=== PATIENT | male | born 1935 | race African-American/Black ===

== ENCOUNTER 2018-02-13 12:24 | Emergency (ER) | payer MEDICARE ==
[~2018-02-13] VITALS: Ht 172.7 cm; Wt 78.0 kg
[2018-02-13 16:50] VITALS: BP 127/74
== END 2018-02-13 16:55 | disposition home or self-care (01) ==
LOC: ER 14:01
DX: M47.892 Other spondylosis, cervical region (principal)
CPT/HCPCS: 72125; 99284

== ENCOUNTER 2018-10-16 17:22 | Inpatient (IN) | payer MEDICARE, OTHER ==
[~2018-10-16] VITALS: Ht 190.5 cm; Wt 83.3 kg
[2018-10-16 21:56] LABS: BASOPHILS % 0.1 % (0.0-2.0); EOSINOPHILS % 2.8 % (0.0-5.0); LYMPHOCYTES % 34.1 % (20.0-50.0); MEAN CORPUSCULAR HEMOGLOBIN 22.4 pg (28.0-32.0); MEAN CORPUSCULAR VOLUME 70.4 fL (80.0-94.0); MONOCYTES % 9.2 % (2.0-8.0); NEUTROPHILS % 53.8 % (40.0-76.0); RED BLOOD CELL COUNT 2.72 mill/uL (4.7-6.1); RED CELL DISTRIBUTION WIDTH 20.2 % (11.6-14.6)
[2018-10-16 22:00] LABS: HEMATOCRIT. 19.2 % (42.0-52.0); HEMOGLOBIN. 6.1 g/dL (14.0-18.0)
[2018-10-16 22:01] LABS: CHLORIDE 110 mEq/L (98-107)
[2018-10-16 22:02] LABS: INR 1.1; PROTHROMBIN TIME 11.1 sec (9.1-11.1)
[2018-10-16 22:11] LABS: MEAN PLATELET VOLUME 10.4 fl (7.4-10.4); PLATELET 164 x1000/uL (130-400)
[2018-10-17 01:00] VITALS: BP 153/86
[2018-10-17] MEDS ORDERED: LORA-250 PO (02:56)
[2018-10-17] MEDS ORDERED: LOSA1TAB40 PO (02:56)
[2018-10-17] MEDS ORDERED: ACETAMINOPHEN 325MG TABLET PO PRN (04:30)
[2018-10-17] MEDS ORDERED: LACTULOSE 20G/30ML UDC PO PRN ×2 (04:30→05:00)
[2018-10-17] MEDS ORDERED: ZOLPIDEM TARTRATE 5MG TABLET PO PRN (04:30)
[2018-10-17] MEDS ORDERED: LORAZEPAM 1MG TABLET PO PRN ×2 (04:30→09:00)
[2018-10-17] MEDS ORDERED: BARIUM SULFATE 450ML ORAL SUSP PO SCH (04:30)
[2018-10-17] MEDS ORDERED: DIATR MEGLU/DIATRIZOATE SOLN 30ML PO SCH (04:30)
[2018-10-17 08:00] VITALS: BP 126/56
[2018-10-17] MEDS ORDERED: LORAZEPAM 2MG/ML CPJ IV NR (08:53)
[2018-10-17] MEDS ORDERED: TRAMADOL 50MG TABLET PO PRN (09:00)
[2018-10-17] MEDS ORDERED: EPOETIN ALFA 10000UNITS/ML VIAL SUBCUT SCH (09:00)
[2018-10-17] MEDS ORDERED: DIATR MEGLU/DIATRIZOATE SOLN 30ML PO NR (09:00)
[2018-10-17] MEDS: AMLODIPINE 5MG TABLET PO SCH (10:06)
[2018-10-17] MEDS: IRON SUCROSE COMPLEX 100 MG/5 ML ML IV SCH (10:06)
[2018-10-17] MEDS: PANTOT AC/MIN OIL/PET HY-PHL OINT (AQUAPHOR) TOP SCH ×2 (10:32→18:34)
[2018-10-17 12:00] VITALS: BP 139/68
[2018-10-17 12:50] LABS: CLARITY URINE CLEAR (CLEAR); COLOR URINE YELLOW (YELLOW); KETONES URINE NEGATIVE (NEGATIVE); LEUKOCYTE ESTERASE URINE NEGATIVE (NEGATIVE); NITRITE URINE NEGATIVE (NEGATIVE); OCCULT BLOOD URINE NEGATIVE (NEGATIVE); PH URINE 6.5 (4.5-8.0); PROTEIN URINE NEGATIVE (NEGATIVE); SPECIFIC GRAVITY URINE 1.013 (1.005-1.030); UROBILINOGEN URINE 0.2 E.U./dL (0.2-1.0)
[2018-10-17 16:00] VITALS: BP 118/52
[2018-10-17 20:58] VITALS: BP 107/66
[2018-10-17 21:24] VITALS: BP 107/66
[2018-10-18] VITALS: BP 121/64
[2018-10-18 04:00] VITALS: BP 140/71
[2018-10-18 08:00] VITALS: BP 122/56
[2018-10-18] MEDS: AMLODIPINE 5MG TABLET PO SCH (08:39)
[2018-10-18] MEDS: IRON SUCROSE COMPLEX 100 MG/5 ML ML IV SCH (08:40)
[2018-10-18] MEDS: PANTOT AC/MIN OIL/PET HY-PHL OINT (AQUAPHOR) TOP SCH ×2 (08:40→16:49)
[2018-10-18 12:00] VITALS: BP 129/62
[2018-10-18 16:00] VITALS: BP 108/56
[2018-10-18] MEDS: PANTOPRAZOLE SODIUM 40 MG/VIAL IV SCH (16:48)
[2018-10-18 20:00] VITALS: BP 120/63
[2018-10-19] VITALS: BP_SYST 123; BP_SYST 153; BP_DIAS 58; BP_DIAS 80
[2018-10-19 07:57] LABS: HEMOGLOBIN 5.7 g/dL (14.0-18.0)
[2018-10-19 07:58] LABS: HEMATOCRIT 17.7 % (42.0-52.0)
[2018-10-19 08:18] LABS: PROSTRATE SPECIFIC AG TOTAL 13.74 ng/mL (0.0-4.0)
[2018-10-19] MEDS ORDERED: LORAZEPAM 2MG/ML CPJ IV PRN (08:30)
[2018-10-19 08:56] VITALS: BP 126/63
[2018-10-19] MEDS: PANTOPRAZOLE SODIUM 40 MG/VIAL IV SCH (08:59)
[2018-10-19] MEDS: AMLODIPINE 5MG TABLET PO SCH (08:59)
[2018-10-19] MEDS: IRON SUCROSE COMPLEX 100 MG/5 ML ML IV SCH (09:08)
[2018-10-19] MEDS: PANTOT AC/MIN OIL/PET HY-PHL OINT (AQUAPHOR) TOP SCH ×2 (09:17→21:53)
[2018-10-19 10:26] LABS: CREATINE KINASE 140 IU/L (39-308)
[2018-10-19 12:15] VITALS: BP 138/69
[2018-10-19 16:25] VITALS: BP 135/60
[2018-10-19 20:41] VITALS: BP 122/56
[2018-10-19] MEDS ORDERED: EPOETIN ALFA 10000UNITS/ML VIAL SUBCUT SCH (21:00)
[2018-10-20] VITALS: BP 116/60
[2018-10-20 04:00] VITALS: BP 117/62
[2018-10-20] MEDS: IRON SUCROSE COMPLEX 100 MG/5 ML ML IV SCH (09:55)
[2018-10-20] MEDS: PANTOPRAZOLE SODIUM 40 MG/VIAL IV SCH (09:55)
[2018-10-20] MEDS: AMLODIPINE 5MG TABLET PO SCH (10:04)
[2018-10-20 12:32] LABS: HEMATOCRIT 18.9 % (42.0-52.0); HEMOGLOBIN 6.1 g/dL (14.0-18.0)
[2018-10-20 12:48] VITALS: BP 121/61
[2018-10-23 14:18] LABS: ANA IFA Negative (.)
== END 2018-10-20 13:18 | disposition home or self-care (01) | DRG 812 ==
LOC: ER 17:35 → 6WST 22:16 → EDBEDREQ 22:34 → EDBEDREQTM 22:34 → ENRESERV 10-17 00:07
PROVIDERS: ADMIT Specialist; ATTEND Specialist
DX: D64.9 Anemia, unspecified (principal); N18.4 Chronic kidney disease, stage 4 (severe); C26.0 Malignant neoplasm of intestinal tract, part unspecified; F40.00 Agoraphobia, unspecified; Z53.1 Procedure and treatment not carried out because of patient's decision for reasons of belief and group pressure; I10 Essential (primary) hypertension; R97.0 Elevated carcinoembryonic antigen [CEA]; M54.12 Radiculopathy, cervical region; M54.9 Dorsalgia, unspecified
CPT/HCPCS: 36415; 74176; 78278; 80048; 82270; 82378; 82550; 84153; 85014; 85018; 85651; 86256; 86850; 86900; 96374; 96375; 97161; 97166; 99285; A9560; C9113; J0885; J2060; Q9963; G0103